=== PATIENT | female | born 1930 | race Caucasian/White ===

== ENCOUNTER → 2017-12-29 | Outpatient (CLI) | payer OTHER ==
--- NOTE | 2017-12-29 16:33 | KCIC ---
Examination: CHEST PA LATERAL History: Bronchitis, productive cough Comparison/Correlation: None Findings: PA and lateral views of chest were obtained. Heart size and pulmonary vasculature are normal. No infiltrate or pleural effusion. Lateral right upper lung field 0.7 cm diameter nodule is present. This is not evident on the prior chest x-ray exam. Small hiatal hernia is present. No pleural effusion. Impression: Lateral right upper lung field nodule. This is new compared to previous chest x-ray exam. Further evaluation with CT of the chest without contrast is recommended for further evaluation. Hiatal hernia. Electronically signed by: Vernon Hu MD (12/29/2017 4:30 PM) [facility]
== END | disposition home or self-care (01) ==
LOC: KCIC 15:02
PROVIDERS: ATTEND Physician Assistant Medical
DX: J20.9 Acute bronchitis, unspecified (principal); K44.9 Diaphragmatic hernia without obstruction or gangrene; R91.1 Solitary pulmonary nodule
CPT/HCPCS: 71046